=== PATIENT | female | born 1985 | race African-American/Black ===

== ENCOUNTER 2020-02-18 13:50 | Emergency (ER) | payer OTHER ==
[~2020-02-18] VITALS: Ht 167.6 cm; Wt 69.0 kg
[2020-02-18] MEDS ORDERED: NAPROSYN500 MG PO (17:06)
[2020-02-18] MEDS ORDERED: COMPAZINE10 M2 PO (17:06)
[2020-02-18 17:33] VITALS: BP 131/69
== END 2020-02-18 17:30 | disposition home or self-care (01) ==
LOC: ER 13:50
DX: G43.909 Migraine, unspecified, not intractable, without status migrainosus (principal); I10 Essential (primary) hypertension; J45.909 Unspecified asthma, uncomplicated; F17.210 Nicotine dependence, cigarettes, uncomplicated

== ENCOUNTER 2020-05-01 03:55 | Emergency (ER) | payer OTHER ==
[~2020-05-01] VITALS: Ht 167.6 cm; Wt 59.0 kg
[~2020-05-01 03:55] MED LIST: COMPAZINE10 M2 PO; NAPROSYN500 MG PO
[2020-05-01 04:25] LABS: ABSOLUTE NEUTROPHILS 4.2 thou/uL (1.4-8.2); BASOPHILS 0.5 % (0.0-2.0); EOSINOPHILS 1.5 % (0.0-3.0); HEMATOCRIT 36.5 % (37.0-47.0); LYMPHOCYTES 25.6 % (24.0-44.0); MCH 30.8 pg (26.0-34.0); MCV 93.5 fL (80.0-100.0); PLATELET COUNT 229 thou/uL (150-400); POLYS 68.4 % (36.0-66.0); RDW 14.4 % (10.5-14.5); WBC 6.2 thou/uL (4.0-11.0)
[2020-05-01 04:41] LABS: ANION GAP 12 mmol/L (7-16); BUN 8 mg/dL (7-18); CHLORIDE 104 mmol/L (98-107); CO2 28 mmol/L (21-32); CREATININE 0.8 mg/dL (0.6-1.0); GLUCOSE 112 mg/dL (74-106); POTASSIUM 3.5 mmol/L (3.5-5.1); SODIUM 144 mmol/L (136-145)
[2020-05-01 04:43] LABS: ALBUMIN 4.2 g/dL (3.4-5.0); AMYLASE 52 U/L (25-115); DIRECT BILIRUBIN < 0.1 mg/dL (<0.1-0.2); LIPASE 69 U/L (73-393); SGOT 32 U/L (15-37); SGPT 32 U/L (14-59); TOTAL BILIRUBIN 0.3 mg/dL (0.2-1.0); TOTAL PROTEIN 7.9 g/dL (6.4-8.2)
[2020-05-01 04:46] LABS: URINE BILIRUBIN NEGATIVE (Negative); URINE BLOOD 1+ (Negative); URINE CLARITY CLEAR; URINE COLOR YELLOW; URINE GLUCOSE-RANDOM* NEGATIVE (Negative); URINE KETONES NEGATIVE (Negative); URINE LEUKOCYTES-REFLEX NEGATIVE (Negative); URINE NITRITE-REFLEX NEGATIVE (Negative); URINE PROTEIN (DIPSTICK) NEGATIVE (Negative); URINE UROBILINOGEN 0.2 E.U./dl (0.2-1.0)
[2020-05-01 04:53] LABS: AMP/METHAMP Negative (Negative); BARBITURATES Negative (Negative); BENZODIAZEPINES Negative (Negative); COCAINE Negative (Negative); METHADONE Negative (Negative); OPIATES Negative (Negative); PCP Negative (Negative)
[2020-05-01 04:59] LABS: APTT 23.6 Seconds (24.5-32.8); PROTIME 10.9 Seconds (9.3-11.4)
[2020-05-01 05:10] LABS: BACTERIA-REFLEX 1-9 Few /HPF (None Seen); CASTS None Seen /LPF (None Seen); CRYSTALS None Seen /LPF (None Seen); MUCUS 0-3 Light strn/LPF (None Seen); SQUAMOUS 0-3 Few /LPF (0-3); URINE RBC 3-10 Few /HPF (0-2); URINE WBC-REFLEX 0-5 Rare /HPF (0-5)
[2020-05-01] MEDS ORDERED: NORCO5 PO (08:07)
[2020-05-01 08:25] VITALS: BP 132/101
--- NOTE | 2020-05-03 07:21 | EKG ---
[address] [address] ELECTROCARDIOGRAM REPORT Name: GIULIANA JOHNSON Room #: [id number] Admission: 05/01/20 Attend Phys: Discharge: 05/01/20 Date of : 83 Report #: [id number] [facility] Test Date: 2020-05-01 Test Time: 04:31:38 Pat Name: GIULIANA JOHNSON Department: Room: Gender: F [employer]igarette [employer]: : 1985 Requested By: Adrian Alvarenga Order Number: [id number] MD: Clinton Fallon Measurements Intervals [place] Rate: 134 P: 60 ME: 96 QRS: 62 QRSD: 102 T: -70 QT: 318 QTc: 475 Interpretive Statements Sinus tachycardia Q lead III No previous ECG available for comparison Electronically Signed On 05-03-2020 7:21:21 CDT by Clinton Fallon [email or web address] <ELECTRONICALLY SIGNED> By: Clinton Fallon MD, [facility] 05/03/20 0721 0431 0431 Clinton Fallon MD, FACC /EPI
== END 2020-05-01 08:27 | disposition home or self-care (01) ==
LOC: ER 03:55
PROVIDERS: Emergency Medicine
DX: S00.03XA Contusion of scalp, initial encounter (principal); S10.93XA Contusion of unspecified part of neck, initial encounter; S00.531A Contusion of lip, initial encounter; F10.129 Alcohol abuse with intoxication, unspecified; I10 Essential (primary) hypertension; J45.909 Unspecified asthma, uncomplicated; Z79.899 Other long term (current) drug therapy; V49.59XA Passenger injured in collision with other motor vehicles in traffic accident, initial encounter; Y93.89 Activity, other specified; Y92.410 Unspecified street and highway as the place of occurrence of the external cause; Y99.8 Other external cause status

== ENCOUNTER 2020-05-03 13:29 | Emergency (ER) | payer OTHER ==
[~2020-05-03] VITALS: Ht 165.1 cm; Wt 73.5 kg
[~2020-05-03 13:29] MED LIST changes: +NORCO5 PO
[2020-05-03] MEDS ORDERED: ROBAXIN 750 MG750 MG PO (14:11)
[2020-05-03] MEDS ORDERED: NORCO 10-325 T1 EACH PO (14:11)
[2020-05-03 15:10] VITALS: BP 143/97
== END 2020-05-03 15:10 | disposition home or self-care (01) ==
LOC: ER 13:29
DX: S02.2XXD Fracture of nasal bones, subsequent encounter for fracture with routine healing (principal); I10 Essential (primary) hypertension; J45.909 Unspecified asthma, uncomplicated; F17.210 Nicotine dependence, cigarettes, uncomplicated; Z79.899 Other long term (current) drug therapy; V43.62XD Car passenger injured in collision with other type car in traffic accident, subsequent encounter

== ENCOUNTER 2020-08-31 15:34 | Emergency (ER) | payer OTHER ==
[~2020-08-31] VITALS: Ht 167.6 cm; Wt 72.6 kg
[~2020-08-31 15:34] MED LIST changes: +NORCO 10-325 T1 EACH PO; +ROBAXIN 750 MG750 MG PO
[2020-08-31 15:37] VITALS: BP 149/91
[2020-08-31] MEDS ORDERED: PREDNISONE 20 M20 MG PO (17:27)
[2020-08-31] MEDS ORDERED: FAMOTIDINE 20 M20 MG PO (17:27)
== END 2020-08-31 17:28 | disposition home or self-care (01) ==
LOC: ER 15:34
DX: L25.9 Unspecified contact dermatitis, unspecified cause (principal); I10 Essential (primary) hypertension; J45.909 Unspecified asthma, uncomplicated; F17.210 Nicotine dependence, cigarettes, uncomplicated; Z79.891 Long term (current) use of opiate analgesic; Z79.899 Other long term (current) drug therapy

== ENCOUNTER 2020-12-05 19:38 | Emergency (ER) | payer OTHER ==
[~2020-12-05] VITALS: Ht 167.6 cm; Wt 74.4 kg
[~2020-12-05 19:38] MED LIST changes: +FAMOTIDINE 20 M20 MG PO; +PREDNISONE 20 M20 MG PO
[2020-12-05] MEDS ORDERED: BUPROPION HCL150 MG PO (19:54)
[2020-12-05] MEDS ORDERED: LOSARTAN POTASS50 MG PO (19:54)
[2020-12-05] MEDS ORDERED: PREDNISONE 20 M20 MG PO (20:04)
[2020-12-05 20:18] VITALS: BP 141/94
== END 2020-12-05 20:19 | disposition home or self-care (01) ==
LOC: ER 19:38
DX: L50.9 Urticaria, unspecified (principal); T49.2X5A Adverse effect of local astringents and local detergents, initial encounter; I10 Essential (primary) hypertension; J45.909 Unspecified asthma, uncomplicated; F17.210 Nicotine dependence, cigarettes, uncomplicated; Z79.899 Other long term (current) drug therapy; Y92.89 Other specified places as the place of occurrence of the external cause

== ENCOUNTER 2020-12-06 11:56 | Emergency (ER) | payer OTHER ==
[~2020-12-06] VITALS: Ht 167.6 cm; Wt 74.4 kg
[~2020-12-06 11:56] MED LIST changes: +BUPROPION HCL150 MG PO; +LOSARTAN POTASS50 MG PO
[2020-12-06 13:43] VITALS: BP 132/72
== END 2020-12-06 13:51 | disposition home or self-care (01) ==
LOC: ER 11:56
DX: L50.8 Other urticaria (principal); T49.2X5A Adverse effect of local astringents and local detergents, initial encounter; I10 Essential (primary) hypertension; J45.909 Unspecified asthma, uncomplicated; F17.210 Nicotine dependence, cigarettes, uncomplicated; Z79.899 Other long term (current) drug therapy; Z79.891 Long term (current) use of opiate analgesic; Y92.89 Other specified places as the place of occurrence of the external cause

== ENCOUNTER 2021-03-23 18:06 | Emergency (ER) | payer OTHER ==
[~2021-03-23] VITALS: Ht 165.1 cm; Wt 74.8 kg
[2021-03-23 19:47] LABS: HEMATOCRIT 34.3 % (37.0-47.0); HEMOGLOBIN 11.3 gm/dL (12.0-15.0); MCH 31.2 pg (26.0-34.0); MCV 94.4 fL (80.0-100.0); RBC 3.63 mil/uL (4.20-5.00); WBC 6.6 thou/uL (4.0-11.0)
[2021-03-23] MEDS ORDERED: ZOFRAN ODT4 MG PO (20:58)
[2021-03-23] MEDS ORDERED: NORCO5 PO (20:58)
[2021-03-23 21:06] VITALS: BP 100/77
== END 2021-03-23 21:08 | disposition home or self-care (01) ==
LOC: ER 18:06
PROVIDERS: Nurse Practitioner Family
DX: O03.4 Incomplete spontaneous abortion without complication (principal); I10 Essential (primary) hypertension; J45.909 Unspecified asthma, uncomplicated; F17.210 Nicotine dependence, cigarettes, uncomplicated; Z98.890 Other specified postprocedural states; Z79.899 Other long term (current) drug therapy